=== PATIENT | female | born 1965 | race Caucasian/White ===

== ENCOUNTER → 2018-09-02 | Outpatient (CLI) | payer OTHER ==
[~2018-09-02] MED LIST: AMLO5 PO; Antivert25 MG PO; CITA20 PO; Cyclobenzaprine5 MG PO; DIAZ5 PO; DULO60 PO; ESCI10 PO; FENO160 PO; HYDACE5 PO; HYDCHL25 PO; INSLIS75I SC; LEVSOD25 PO; LEVSOD50 PO; LISI20 PO; MELA3 PO; METO25 PO; METO25ER PO; METO50ER PO; OXYACE5T PO; Percocet 5-3251 EACH PO; Prednisone20 MG PO; QUETIAPINE FUMA50 MG PO; Stool Softener250 MG PO; TRIHYD253B PO; VENL150ER PO; Valium5 MG PO; WARF10 PO; WARF4 PO; ZOLP10 PO; [UNRECOGNIZED DRUG - OTHER] PO
[2018-09-02 12:36] LABS: International Normalized Ratio 1.06; Prothrombin Time Results 11.2 Sec (9.7-11.5)
== END | disposition home or self-care (01) ==
LOC: LAB SHORT 09:40 → LAB 09:40
PROVIDERS: Internal Medicine
DX: D68.9 Coagulation defect, unspecified (principal)
CPT/HCPCS: 36415; 85610

== ENCOUNTER → 2018-09-04 | Outpatient (CLI) | payer OTHER ==
[2018-09-04 18:50] LABS: International Normalized Ratio 1.16; Prothrombin Time Results 12.1 Sec (9.7-11.5)
== END | disposition home or self-care (01) ==
LOC: LAB 18:23 → LAB SHORT 18:23
PROVIDERS: Internal Medicine
DX: D68.9 Coagulation defect, unspecified (principal)
CPT/HCPCS: 36415; 85610

== ENCOUNTER → 2018-09-06 | Outpatient (CLI) | payer OTHER ==
[2018-09-06 20:02] LABS: International Normalized Ratio 1.39; Prothrombin Time Results 14.3 Sec (9.7-11.5)
== END | disposition home or self-care (01) ==
LOC: LAB 18:42 → LAB SHORT 18:42
PROVIDERS: Internal Medicine
DX: D68.9 Coagulation defect, unspecified (principal)
CPT/HCPCS: 36415; 85610

== ENCOUNTER → 2018-09-13 | Outpatient (CLI) | payer OTHER ==
[2018-09-14 09:25] LABS: International Normalized Ratio 2.58; Prothrombin Time Results 25.1 Sec (9.7-11.5)
== END | disposition home or self-care (01) ==
LOC: LAB 18:00 → LAB SHORT 18:00
PROVIDERS: Internal Medicine
DX: D68.9 Coagulation defect, unspecified (principal)
CPT/HCPCS: 85610

== ENCOUNTER → 2018-09-25 | Outpatient (CLI) | payer OTHER ==
[2018-09-26 10:57] LABS: International Normalized Ratio 1.99; Prothrombin Time Results 19.8 Sec (9.7-11.5)
== END | disposition home or self-care (01) ==
LOC: LAB 17:05 → LAB SHORT 17:05
PROVIDERS: Internal Medicine
DX: D68.9 Coagulation defect, unspecified (principal)
CPT/HCPCS: 85610

== ENCOUNTER → 2019-07-28 | Outpatient (CLI) | payer OTHER ==
[2019-07-28 12:09] LABS: BASOPHILS ABSOLUTE AUTO 0.09 K/mm3 (0.00-0.23); BASOPHILS PERCENT AUTO 1 % (0-2); EOSINOPHILS ABSOLUTE AUTO 0.52 K/mm3 (0.00-0.68); EOSINOPHILS PERCENT AUTO 7 % (0-6); Hemoglobin 15.4 g/dL (11.5-16.0); IMMATURE GRAN ABSOLUTE AUTO 0.04 K/mm3 (0.00-0.10); IMMATURE GRAN PERCENT AUTO 1 % (0-1); LYMPHOCYTES ABSOLUTE AUTO 1.88 K/mm3 (0.84-5.20); LYMPHOCYTES PERCENT AUTO 24 % (21-46); MONOCYTES ABSOLUTE AUTO 0.49 K/mm3 (0.16-1.47); MONOCYTES PERCENT AUTO 6 % (4-13); Mean Corpuscular HGB 28.3 pg (26.0-34.0); Mean Corpuscular HGB Conc 32.8 g/dL (31.5-36.5); Mean Corpuscular Volume 86 fL (80-100); Mean Platelet Volume 10.1 fL (9.1-12.4); NEUTROPHILS ABSOLUTE AUTO 4.89 K/mm3 (1.96-9.15); NEUTROPHILS PERCENT AUTO 62 % (41-73); Platelet Count 300 K/mm3 (150-400); RDW Coefficient Variation 15.2 % (11.7-14.2); RDW Standard Deviation 47.7 fL (35.1-46.3); Red Blood Cell Count 5.45 M/mm3 (3.80-5.20); White Blood Cell Count 7.91 K/mm3 (4.00-11.30)
[2019-07-28 12:46] LABS: Alanine Aminotransfer (ALT/SGP 71 U/L (12-78); Albumin, Blood 3.7 g/dL (3.4-5.0); Albumin/Globulin Ratio 0.9 (0.8-1.8); Alk Phos 86 U/L (40-126); Anion Gap 9 mmol/L (6-16); Aspartate Aminotrans (AST/SGOT 78 U/L (12-37); Bilirubin, Total 0.5 mg/dL (0.1-1.0); Blood Urea Nitrogen 14 mg/dL (8-24); Bun/Creatinine Ratio 17.7 (12.0-20.0); CO2, Blood 28 mmol/L (21-32); Calcium, Blood 9.6 mg/dL (8.5-10.1); Chloride, Blood 104 mmol/L (98-108); Cholesterol 225 mg/dL (50-200); Creatinine, Blood 0.79 mg/dL (0.40-1.00); Globulin, Blood 3.9 g/dL (2.2-4.0); Glomerular Filtration Rate >60 (60-); Glucose, Blood 171 mg/dL (70-99); HDL Cholesterol 32 mg/dL (>39); LDL/HDL RATIO 4.9; Low Density Lipoprotein Chol 158 mg/dL (<110); Potassium, Blood 4.2 mmol/L (3.5-5.5); Sodium, Blood 141 mmol/L (136-145); Thyroid Stimulating Hormone 2.817 uIU/mL (0.360-4.800); Total Protein, Blood 7.6 g/dL (6.4-8.2); Triglycerides 174 mg/dL (30-160); Very Low Density Lipoprot Chol 34 mg/dL (6-32)
[2019-07-28 12:59] LABS: International Normalized Ratio 1.54; Prothrombin Time Results 16.1 Sec (9.7-11.5)
== END | disposition home or self-care (01) ==
LOC: LAB EV 12:00 → LAB SHORT 12:00
PROVIDERS: Internal Medicine
DX: E78.5 Hyperlipidemia, unspecified (principal); E03.9 Hypothyroidism, unspecified; D68.9 Coagulation defect, unspecified
CPT/HCPCS: 80053; 80061; 84439; 84443; 85025; 85610

== ENCOUNTER → 2019-10-17 | Outpatient (CLI) | payer OTHER ==
[2019-10-17 17:44] LABS: International Normalized Ratio 3.67; Prothrombin Time Results 36.5 Sec (9.7-11.5)
== END | disposition home or self-care (01) ==
LOC: LAB SHORT 17:10 → LAB 17:10
PROVIDERS: Internal Medicine
DX: D68.9 Coagulation defect, unspecified (principal)
CPT/HCPCS: 85610

== ENCOUNTER → 2019-11-07 | Outpatient (CLI) | payer SELFPAY ==
[2019-11-07 17:41] LABS: International Normalized Ratio 3.31; Prothrombin Time Results 33.1 Sec (9.7-11.5)
== END | disposition home or self-care (01) ==
LOC: LAB SHORT 17:22 → LAB 17:22
PROVIDERS: Internal Medicine
DX: D68.9 Coagulation defect, unspecified (principal)
CPT/HCPCS: 85610

== ENCOUNTER → 2019-11-23 | Outpatient (CLI) | payer SELFPAY ==
[2019-11-23 08:22] LABS: International Normalized Ratio 2.89; Prothrombin Time Results 29.1 Sec (9.7-11.5)
== END | disposition home or self-care (01) ==
LOC: LAB 08:02 → LAB SHORT 08:02
PROVIDERS: Internal Medicine
DX: D68.9 Coagulation defect, unspecified (principal)
CPT/HCPCS: 85610

== ENCOUNTER 2019-12-18 18:19 | Emergency (ER) | payer OTHER ==
[~2019-12-18] VITALS: Ht 167.6 cm; Wt 141.1 kg
[2019-12-18] MEDS ORDERED: GABA100 PO (20:42)
[2019-12-18] MEDS ORDERED: OXYC5 PO (20:43)
[2019-12-18] MEDS ORDERED: ESCI10 PO (20:43)
[2019-12-18 21:08] LABS: BASOPHILS ABSOLUTE AUTO 0.04 K/mm3 (0.00-0.23); BASOPHILS PERCENT AUTO 1 % (0-2); EOSINOPHILS ABSOLUTE AUTO 0.61 K/mm3 (0.00-0.68); EOSINOPHILS PERCENT AUTO 9 % (0-6); Hematocrit 47.2 % (33.0-51.0); Hemoglobin 15.7 g/dL (11.5-16.0); IMMATURE GRAN ABSOLUTE AUTO 0.03 K/mm3 (0.00-0.10); IMMATURE GRAN PERCENT AUTO 1 % (0-1); LYMPHOCYTES PERCENT AUTO 28 % (21-46); MONOCYTES ABSOLUTE AUTO 0.52 K/mm3 (0.16-1.47); MONOCYTES PERCENT AUTO 8 % (4-13); Mean Corpuscular HGB 28.2 pg (26.0-34.0); Mean Corpuscular HGB Conc 33.3 g/dL (31.5-36.5); Mean Corpuscular Volume 85 fL (80-100); NEUTROPHILS ABSOLUTE AUTO 3.48 K/mm3 (1.96-9.15); NEUTROPHILS PERCENT AUTO 54 % (41-73); Platelet Count 182 K/mm3 (150-400); RDW Coefficient Variation 13.2 % (11.7-14.2); RDW Standard Deviation 41.2 fL (35.1-46.3); Red Blood Cell Count 5.56 M/mm3 (3.80-5.20); White Blood Cell Count 6.48 K/mm3 (4.00-11.30)
[2019-12-18 21:22] LABS: International Normalized Ratio 3.23; Prothrombin Time Results 32.3 Sec (9.7-11.5)
[2019-12-18 21:28] LABS: Alanine Aminotransfer (ALT/SGP 49 U/L (12-78); Albumin, Blood 3.7 g/dL (3.4-5.0); Alk Phos 131 U/L (50-136); Anion Gap 8 mmol/L (6-16); Aspartate Aminotrans (AST/SGOT 37 U/L (12-37); Bilirubin, Total 0.8 mg/dL (0.1-1.0); Blood Urea Nitrogen 11 mg/dL (8-24); Bun/Creatinine Ratio 17.8 (12.0-20.0); CO2, Blood 28 mmol/L (21-32); Calcium, Blood 8.9 mg/dL (8.5-10.1); Chloride, Blood 98 mmol/L (98-108); Creatinine, Blood 0.62 mg/dL (0.40-1.00); Globulin, Blood 3.6 g/dL (2.2-4.0); Glomerular Filtration Rate >60 (60-); Glucose, Blood 429 mg/dL (70-99); Potassium, Blood 3.9 mmol/L (3.5-5.5); Sodium, Blood 134 mmol/L (136-145); Total Protein, Blood 7.3 g/dL (6.4-8.2)
[2019-12-18] MEDS ORDERED: HYDCOR2.5C PR (21:45)
== END 2019-12-18 22:03 | disposition home or self-care (01) ==
LOC: ER 18:19
PROVIDERS: Emergency Medicine
DX: K64.5 Perianal venous thrombosis (principal); I10 Essential (primary) hypertension; M79.7 Fibromyalgia; Z86.73 Personal history of transient ischemic attack (TIA), and cerebral infarction without residual deficits; Z88.0 Allergy status to penicillin; Z88.6 Allergy status to analgesic agent; Z88.8 Allergy status to other drugs, medicaments and biological substances; Z79.01 Long term (current) use of anticoagulants; Z79.899 Other long term (current) drug therapy
CPT/HCPCS: 46083; 80053; 85025; 85610; 99282-25

== ENCOUNTER → 2019-12-31 | Outpatient (CLI) | payer OTHER ==
[~2019-12-31] MED LIST changes: +GABA100 PO; +HYDCOR2.5C PR; +OXYC5 PO
[2019-12-31 08:30] LABS: International Normalized Ratio 1.66; Prothrombin Time Results 17.3 Sec (9.7-11.5)
== END | disposition home or self-care (01) ==
LOC: LAB SHORT 08:11 → LAB 08:11
PROVIDERS: Internal Medicine
DX: D68.9 Coagulation defect, unspecified (principal)
CPT/HCPCS: 85610

== ENCOUNTER → 2020-01-15 | Outpatient (CLI) | payer OTHER ==
[2020-01-15 09:43] LABS: International Normalized Ratio 1.52; Prothrombin Time Results 15.9 Sec (9.7-11.5)
== END | disposition home or self-care (01) ==
LOC: LAB 09:23 → LAB SHORT 09:23
PROVIDERS: Internal Medicine
DX: D68.9 Coagulation defect, unspecified (principal)
CPT/HCPCS: 85610

== ENCOUNTER → 2020-02-23 | Outpatient (CLI) | payer SELFPAY ==
[2020-02-23 15:32] LABS: International Normalized Ratio 2.01; Prothrombin Time Results 20.7 Sec (9.7-11.5)
== END | disposition home or self-care (01) ==
LOC: LAB 15:10 → LAB SHORT 15:10
PROVIDERS: Internal Medicine
DX: D68.9 Coagulation defect, unspecified (principal)
CPT/HCPCS: 85610

== ENCOUNTER → 2020-03-18 | Outpatient (CLI) | payer OTHER ==
[2020-03-18 12:01] LABS: International Normalized Ratio 2.1; Prothrombin Time Results 21.5 Sec (9.7-11.5)
== END | disposition home or self-care (01) ==
LOC: LAB 11:39 → LAB SHORT 11:39
PROVIDERS: Internal Medicine
DX: D68.9 Coagulation defect, unspecified (principal)
CPT/HCPCS: 85610

== ENCOUNTER → 2020-04-15 | Outpatient (CLI) | payer OTHER ==
[2020-04-15 12:27] LABS: International Normalized Ratio 2.65; Prothrombin Time Results 26.8 Sec (9.7-11.5)
== END | disposition home or self-care (01) ==
LOC: LAB 12:08 → LAB SHORT 12:08
PROVIDERS: Internal Medicine
DX: D68.9 Coagulation defect, unspecified (principal)
CPT/HCPCS: 85610

== ENCOUNTER → 2020-05-06 | Outpatient (CLI) | payer OTHER ==
[2020-05-06 10:00] LABS: International Normalized Ratio 1.97; Prothrombin Time Results 20.3 Sec (9.7-11.5)
== END | disposition home or self-care (01) ==
LOC: LAB 09:37 → LAB SHORT 09:37
PROVIDERS: Internal Medicine
DX: D68.9 Coagulation defect, unspecified (principal)
CPT/HCPCS: 85610

== ENCOUNTER → 2020-06-26 | Outpatient (CLI) | payer OTHER ==
[~2020-06-26] MED LIST changes: +ONDA4ODT MM
[2020-06-27 08:05] LABS: International Normalized Ratio 2.95; Prothrombin Time Results 29.7 Sec (9.7-11.5)
== END | disposition home or self-care (01) ==
LOC: LAB 17:00
PROVIDERS: Internal Medicine
DX: D68.9 Coagulation defect, unspecified (principal)
CPT/HCPCS: 85610

== ENCOUNTER 2021-01-22 22:24 | Emergency (ER) | payer OTHER ==
[~2021-01-22] VITALS: Ht 167.6 cm; Wt 129.3 kg
[~2021-01-22 22:24] MED LIST changes: -ONDA4ODT MM
[2021-01-23 00:13] LABS: BASOPHILS ABSOLUTE AUTO 0.06 K/mm3 (0.00-0.23); BASOPHILS PERCENT AUTO 1 % (0-2); EOSINOPHILS ABSOLUTE AUTO 0.04 K/mm3 (0.00-0.68); EOSINOPHILS PERCENT AUTO 0 % (0-6); Hematocrit 49.7 % (33.0-51.0); Hemoglobin 16.4 g/dL (11.5-16.0); IMMATURE GRAN ABSOLUTE AUTO 0.04 K/mm3 (0.00-0.10); IMMATURE GRAN PERCENT AUTO 0 % (0-1); LYMPHOCYTES ABSOLUTE AUTO 0.34 K/mm3 (0.84-5.20); LYMPHOCYTES PERCENT AUTO 3 % (21-46); MONOCYTES ABSOLUTE AUTO 0.44 K/mm3 (0.16-1.47); MONOCYTES PERCENT AUTO 4 % (4-13); Mean Corpuscular HGB 27.5 pg (26.0-34.0); Mean Corpuscular Volume 83 fL (80-100); Mean Platelet Volume 10.8 fL (9.1-12.4); NEUTROPHILS PERCENT AUTO 91 % (41-73); Platelet Count 259 K/mm3 (150-400); RDW Coefficient Variation 13.9 % (11.7-14.2); RDW Standard Deviation 42.7 fL (35.1-46.3); Red Blood Cell Count 5.96 M/mm3 (3.80-5.20); White Blood Cell Count 10.12 K/mm3 (4.00-11.30)
[2021-01-23 00:31] LABS: Alanine Aminotransfer (ALT/SGP 78 U/L (12-78); Albumin, Blood 3.8 g/dL (3.4-5.0); Albumin/Globulin Ratio 0.9 (0.8-1.8); Alk Phos 91 U/L (50-136); Anion Gap 10 mmol/L (6-16); Aspartate Aminotrans (AST/SGOT 94 U/L (12-37); Bilirubin, Total 1.1 mg/dL (0.1-1.0); Blood Urea Nitrogen 18 mg/dL (8-24); Bun/Creatinine Ratio 29.6 (12.0-20.0); CO2, Blood 20 mmol/L (21-32); Calcium, Blood 8.9 mg/dL (8.5-10.1); Chloride, Blood 108 mmol/L (98-108); Creatinine, Blood 0.61 mg/dL (0.40-1.00); Globulin, Blood 4.1 g/dL (2.2-4.0); Glomerular Filtration Rate >60 (60-); Glucose, Blood 213 mg/dL (70-99); Sodium, Blood 138 mmol/L (136-145); Total Protein, Blood 7.9 g/dL (6.4-8.2)
[2021-01-23 06:36] LABS: Appearance, Urine Clear (Clear); Bilirubin, Urine Neg (Neg); Blood, Urine Neg (Neg); Color, Urine Yellow (P-Yellow); Glucose Qualitative, Urine Neg (Neg); Ketones, Urine 2+ (Neg); Leukocyte Esterase, Urine Neg (Neg); Nitrite, Urine Neg (Neg); Protein, Urine Neg (Neg); Urobilinogen, Urine NORM (Normal)
[2021-01-23 06:44] LABS: Source, Urine Clean Catch
[2021-01-23] MEDS ORDERED: ONDA4ODT MM (06:50)
== END 2021-01-23 06:58 | disposition home or self-care (01) ==
LOC: ER 22:24
PROVIDERS: Physician Assistant
DX: K52.9 Noninfective gastroenteritis and colitis, unspecified (principal); I10 Essential (primary) hypertension; Z88.0 Allergy status to penicillin; Z88.6 Allergy status to analgesic agent; Z88.8 Allergy status to other drugs, medicaments and biological substances; Z79.01 Long term (current) use of anticoagulants; Z79.899 Other long term (current) drug therapy
CPT/HCPCS: 36415; 80053; 81003; 83690; 85025; 96374; 96375; 99284; J1790; J2405; J7030

== ENCOUNTER 2021-03-22 23:44 | Emergency (ER) | payer MEDICARE ==
[~2021-03-22] VITALS: Ht 167.6 cm; Wt 129.3 kg
[~2021-03-22 23:44] MED LIST changes: +ONDA4ODT MM
[2021-03-23] MEDS ORDERED: METOPROLOL SUCC25 MG PO (00:38)
[2021-03-23] MEDS ORDERED: GLIP5ER (00:38)
[2021-03-23] MEDS ORDERED: METFORMIN HCL1000 M8 PO (00:38)
[2021-03-23] MEDS ORDERED: AMLODIPINE BESYL5 MG PO (00:38)
[2021-03-23] MEDS ORDERED: DULOXETINE HCL60 M1 PO (00:38)
[2021-03-23] MEDS ORDERED: SITA100T2 PO (00:38)
[2021-03-23] MEDS ORDERED: GABAPENTIN600 MG PO (00:38)
[2021-03-23] MEDS ORDERED: LISINOPRIL 20 MG TAB (00:39)
[2021-03-23] MEDS ORDERED: LISI20 PO (00:39)
[2021-03-23] MEDS ORDERED: QUETIAPINE FUM PO (00:39)
[2021-03-23] MEDS ORDERED: JANTOVEN2 MG PO (00:39)
[2021-03-23 01:02] LABS: BASOPHILS ABSOLUTE AUTO 0.02 K/mm3 (0.00-0.23); BASOPHILS PERCENT AUTO 1 % (0-2); EOSINOPHILS ABSOLUTE AUTO 0.07 K/mm3 (0.00-0.68); EOSINOPHILS PERCENT AUTO 2 % (0-6); Hematocrit 38.9 % (33.0-51.0); Mean Corpuscular HGB 27.7 pg (26.0-34.0); Mean Corpuscular HGB Conc 33.4 g/dL (31.5-36.5); Mean Corpuscular Volume 83 fL (80-100); Mean Platelet Volume 9.9 fL (9.1-12.4); Platelet Count 276 K/mm3 (150-400); RDW Coefficient Variation 14.5 % (11.7-14.2); RDW Standard Deviation 43.9 fL (35.1-46.3); White Blood Cell Count 4.19 K/mm3 (4.00-11.30)
[2021-03-23 01:03] LABS: IMMATURE GRAN ABSOLUTE AUTO 0.02 K/mm3 (0.00-0.10); IMMATURE GRAN PERCENT AUTO 1 % (0-1); LYMPHOCYTES ABSOLUTE AUTO 1.03 K/mm3 (0.84-5.20); LYMPHOCYTES PERCENT AUTO 25 % (21-46); MONOCYTES ABSOLUTE AUTO 0.51 K/mm3 (0.16-1.47); MONOCYTES PERCENT AUTO 12 % (4-13); NEUTROPHILS ABSOLUTE AUTO 2.54 K/mm3 (1.96-9.15); NEUTROPHILS PERCENT AUTO 61 % (41-73)
[2021-03-23 01:19] LABS: Albumin/Globulin Ratio 0.8 (0.8-1.8); Bilirubin, Total 0.5 mg/dL (0.1-1.0); Bun/Creatinine Ratio 14.7 (12.0-20.0); Calcium, Blood 8.3 mg/dL (8.5-10.1); Creatinine, Blood 1.02 mg/dL (0.40-1.00); Globulin, Blood 3.9 g/dL (2.2-4.0); Potassium, Blood 3.4 mmol/L (3.5-5.5); Total Protein, Blood 6.9 g/dL (6.4-8.2)
[2021-03-23 02:06] LABS: SARS-Cov-2 (COVID-19) PCR, MMC POSITIVE (NEGATIVE)
[2021-03-23] MEDS ORDERED: DEXA6 PO (03:04)
[2021-03-23] MEDS ORDERED: ONDA4ODT MM (03:04)
== END 2021-03-23 05:50 | disposition home or self-care (01) ==
LOC: ER 23:44
PROVIDERS: Emergency Medicine
DX: U07.1 COVID-19 (principal); S09.90XA Unspecified injury of head, initial encounter; E86.0 Dehydration; R09.02 Hypoxemia; I10 Essential (primary) hypertension; Z79.01 Long term (current) use of anticoagulants; Z88.0 Allergy status to penicillin; Z88.6 Allergy status to analgesic agent; Z88.8 Allergy status to other drugs, medicaments and biological substances; Z79.899 Other long term (current) drug therapy; Z79.890 Hormone replacement therapy; W19.XXXA Unspecified fall, initial encounter
CPT/HCPCS: 70450; 71045; 72125; 80053; 82728; 83615; 83880; 84484; 85025; 93005; 93010; 96374; 99285-25; J1100; J7030; U0004

== ENCOUNTER → 2021-04-02 | Outpatient (CLI) | payer MEDICARE ==
[~2021-04-02] MED LIST changes: +AMLODIPINE BESYL5 MG PO; +DEXA6 PO; +DULOXETINE HCL60 M1 PO; +GABAPENTIN600 MG PO; +GLIP5ER; +JANTOVEN2 MG PO; +LISINOPRIL 20 MG TAB; +METFORMIN HCL1000 M8 PO; +METOPROLOL SUCC25 MG PO; +QUETIAPINE FUM PO; +SITA100T2 PO
[2021-04-02 17:14] LABS: BASOPHILS ABSOLUTE AUTO 0.02 K/mm3 (0.00-0.23); BASOPHILS PERCENT AUTO 0 % (0-2); EOSINOPHILS PERCENT AUTO 0 % (0-6); Hematocrit 45.7 % (33.0-51.0); Hemoglobin 14.6 g/dL (11.5-16.0); IMMATURE GRAN ABSOLUTE AUTO 0.07 K/mm3 (0.00-0.10); IMMATURE GRAN PERCENT AUTO 1 % (0-1); LYMPHOCYTES ABSOLUTE AUTO 0.89 K/mm3 (0.84-5.20); LYMPHOCYTES PERCENT AUTO 8 % (21-46); MONOCYTES ABSOLUTE AUTO 0.27 K/mm3 (0.16-1.47); MONOCYTES PERCENT AUTO 3 % (4-13); Mean Corpuscular HGB 27.4 pg (26.0-34.0); Mean Corpuscular HGB Conc 31.9 g/dL (31.5-36.5); Mean Corpuscular Volume 86 fL (80-100); Mean Platelet Volume 9.9 fL (9.1-12.4); NEUTROPHILS ABSOLUTE AUTO 9.36 K/mm3 (1.96-9.15); NEUTROPHILS PERCENT AUTO 88 % (41-73); Platelet Count 289 K/mm3 (150-400); RDW Coefficient Variation 15.5 % (11.7-14.2); RDW Standard Deviation 47.9 fL (35.1-46.3); Red Blood Cell Count 5.33 M/mm3 (3.80-5.20); White Blood Cell Count 10.61 K/mm3 (4.00-11.30)
[2021-04-02 17:23] LABS: Albumin, Blood 3.6 g/dL (3.4-5.0); Albumin/Globulin Ratio 0.9 (0.8-1.8); Bun/Creatinine Ratio 26.3 (12.0-20.0); Calcium, Blood 9.3 mg/dL (8.5-10.1); Creatinine, Blood 0.99 mg/dL (0.40-1.00); Potassium, Blood 4.9 mmol/L (3.5-5.5); Total Protein, Blood 7.6 g/dL (6.4-8.2)
[2021-04-02 17:34] LABS: International Normalized Ratio 1.8; Prothrombin Time Results 18.8 Sec (9.7-11.5)
== END | disposition home or self-care (01) ==
LOC: LAB SHORT 17:07 → LAB 17:07
PROVIDERS: Physician Assistant
DX: U07.1 COVID-19 (principal); Z79.01 Long term (current) use of anticoagulants; Z51.81 Encounter for therapeutic drug level monitoring
CPT/HCPCS: 80053; 85025; 85610

== ENCOUNTER → 2021-04-07 | Outpatient (CLI) | payer MEDICARE ==
[2021-04-08 10:21] LABS: International Normalized Ratio 1.11; Prothrombin Time Results 11.9 Sec (9.7-11.5)
== END | disposition home or self-care (01) ==
LOC: LAB SHORT 18:00
PROVIDERS: Internal Medicine
DX: D68.9 Coagulation defect, unspecified (principal)
CPT/HCPCS: 85610

== ENCOUNTER → 2021-04-13 | Outpatient (CLI) | payer MEDICARE ==
[2021-04-14 10:58] LABS: International Normalized Ratio 1.48; Prothrombin Time Results 15.6 Sec (9.7-11.5)
== END | disposition home or self-care (01) ==
LOC: LAB SHORT 17:00
PROVIDERS: Internal Medicine
DX: D68.9 Coagulation defect, unspecified (principal)
CPT/HCPCS: 85610

== ENCOUNTER → 2021-08-20 | Outpatient (CLI) | payer MEDICARE | END | disposition home or self-care (01) | LOC: LAB SHORT 11:16 → PLD 11:16 → LAB 11:16 | DX: L57.0 Actinic keratosis (principal) | CPT/HCPCS: 88305; 88312 ==

== ENCOUNTER → 2023-05-27 | Outpatient (CLI) | payer MEDICARE ==
[2023-05-27 17:54] LABS: International Normalized Ratio 2.01; Prothrombin Time Results 20.3 Sec (9.7-11.5)
== END ==
LOC: LAB 17:35 → LAB SHORT 17:35
PROVIDERS: Internal Medicine
DX: D68.51 Activated protein C resistance (principal)
CPT/HCPCS: 85610

== ENCOUNTER → 2023-07-05 | Outpatient (CLI) | payer MEDICARE ==
[2023-07-05 17:13] LABS: International Normalized Ratio 1.86; Prothrombin Time Results 18.9 Sec (9.7-11.5)
== END ==
LOC: LAB 15:44 → LAB SHORT 15:44
PROVIDERS: Internal Medicine
DX: D68.51 Activated protein C resistance (principal)
CPT/HCPCS: 85610

== ENCOUNTER → 2023-08-03 | Outpatient (CLI) | payer MEDICARE ==
[2023-08-03 17:36] LABS: International Normalized Ratio 3.19; Prothrombin Time Results 31.4 Sec (9.7-11.5)
== END | disposition home or self-care (01) ==
LOC: LAB 15:45 → LAB SHORT 15:45
PROVIDERS: Internal Medicine
DX: D68.51 Activated protein C resistance (principal)
CPT/HCPCS: 85610

== ENCOUNTER → 2023-09-02 | Outpatient (CLI) | payer MEDICARE ==
[2023-09-02 17:45] LABS: International Normalized Ratio 2.71; Prothrombin Time Results 26.9 Sec (9.7-11.5)
== END ==
LOC: LAB SHORT 15:10 → LAB 15:10
PROVIDERS: Internal Medicine
DX: D68.51 Activated protein C resistance (principal)
CPT/HCPCS: 85610